=== PATIENT | female | born 1980 | race Caucasian/White ===

== ENCOUNTER 2021-04-20 15:45 | Emergency (ER) | payer BC, OTHER ==
--- NOTE | 2021-04-20 15:58 | EDM.PDOC ---
ED HPI GENERAL MEDICAL PROBLEM - General Stated Complaint: CHEST PRESSURE Time Seen by Provider: 04/20/21 15:45 Source of Information: Reports: Patient - History of Present Illness INITIAL COMMENTS - FREE TEXT/NARRATIVE: 40-year-old lady came in by private vehicle to the emergency department for evaluation of chest pressure. She points to an area over her left chest along the midclavicular line and approximately T2-T3 and states she has a pressure type feeling there. The chest pain/pressure is exacerbated by deep breath and by pressure applied directly over the area of the chest. She states that she had a panic attack several years ago when she had her last but this pain is very different. It is accompanied by dizziness and diaphoresis. There is a family history of early cardiac disease in her grandmother. Patient states that her grandmother had her first heart attack in her late 40s or early 50s. Her mom and dad have not had any cardiac disease that she knows of but they take medications for blood pressure. His past medical history is significant for type 1 diabetes. States that prior to this she was in her normal state of health. She has no known sick contacts. She denies fever, chills, respiratory symptoms, change in bowel or bladder habits. - Related Data Allergies Allergy/AdvReac Type Severity Reaction Status Date / Time cefaclor [From Ceclor] Allergy Anaphylactic Verified 05/21/13 08:32 Shock oxycodone [Oxycodone] Allergy Shortness Verified 01/05/14 18:13 of Breath Penicillins Allergy Anaphylactic Verified 05/21/13 08:32 Shock shellfish derived Allergy Anaphylactic Verified 05/21/13 08:32 Shock atorvastatin calcium AdvReac Unknown Leg Cramps Verified 09/22/13 00:41 [From Lipitor] butorphanol tartrate AdvReac Unknown Difficulty Verified 09/22/13 00:43 [From Stadol] Breathing simvastatin AdvReac Unknown Leg Cramps Verified 09/22/13 00:42 Home Meds: Home Meds Insulin Lispro [Humalog] 1 tab PO DAILY 05/21/13 [History] Multivitamin [Multi Vitamin Daily] 1 each PO DAILY 01/05/14 [History] Doxycycline Hyclate 100 mg PO BID #14 tablet. 04/20/21 [Rx] ED ROS GENERAL - Review of Systems Review Of Systems: See Below Constitutional: Reports: No Symptoms HEENT: Reports: No Symptoms Respiratory: Reports: No Symptoms Cardiovascular: Reports: Chest Pain, Lightheadedness Endocrine: Reports: No Symptoms GI/Abdominal: Reports: No Symptoms : Reports: No Symptoms Musculoskeletal: Reports: No Symptoms Skin: Reports: No Symptoms Neurological: Reports: No Symptoms Psychiatric: Reports: No Symptoms Hematologic/Lymphatic: Reports: No Symptoms Immunologic: Reports: No Symptoms ED EXAM, GENERAL - Physical Exam Exam: See Below Exam Limited By: No Limitations General Appearance: Alert, WD/WN, No Apparent Distress Eye Exam: Bilateral Eye: EOMI Head: Atraumatic, Normocephalic Neck: Normal Inspection Respiratory/Chest: No Respiratory Distress, Lungs Clear Cardiovascular: Regular Rate, Rhythm, No Gallop, No Murmur, Other (Pressure placed over the left chest along the midclavicular line approximately T2 through the T4 intercostal area reproduces the patient's chest pain/pressure, deep inspiration with pressure held in the spot also increases pain/pressure) Peripheral Pulses: 2+: Radial (L), Radial (R), Dorsalis Pedis (L), Dorsalis Pedis (R) GI/Abdominal: Normal Bowel Sounds, Non-Tender Back Exam: Normal Inspection. No: CVA Tenderness (R), CVA Tenderness (L) Neurological: Alert, Oriented, CN II-XII Intact, Normal Cognition Psychiatric: Normal Affect, Normal Mood Skin Exam: Warm, Dry, Intact Course - Vital Signs Text/Narrative:: Review of EKG and chest x-ray are essentially negative. D-dimer negative. Troponin negative. Patient has mildly elevated white blood cell count. Patient was given GI cocktail but had no relief of symptoms or change in symptoms. Further investigation/interview with the patient shows that she had a abscess on the left lower abdomen which was treated with Bactrim but she had an drug reaction to Bactrim and she was subsequently treated with ciprofloxacin and doxycycline. She completed antibiotic treatment approximately 10 days ago. However, over the last several days she has had sinus pain and pressure, sinus headache. Further physical exam shows significant erythema and edema of the nasal mucosa, right greater than left. She has significant tenderness to palpation over the right maxillary sinuses. Patient will be given 100 mg of doxycycline and sent home. Patient will be sent home with prescription for outpatient doxycycline treatment and encouraged to up with her primary care physician. Last Recorded V/S: Last Vital Signs Temp 37.0 C 04/20/21 16:07 Pulse 101 H 04/20/21 16:17 Resp 18 04/20/21 16:17 BP 150/92 H 04/20/21 16:17 Pulse Ox 98 04/20/21 16:17 - Orders/Labs/Meds Orders: Active Orders 24 hr Category Date Time Status CXR [Chest 1V Frontal] [CR] Stat Exams 04/20/21 16:01 Ordered Doxycycline [Vibra-Tabs] Med 04/20/21 17:08 Once 100 mg PO ONETIME ONE EKG 12 Lead [EK] Routine Ther 04/20/21 15:52 Ordered Labs: Laboratory Tests 04/20/21 04/20/21 04/20/21 Range/Units 15:52 15:52 15:52 WBC 11.8 H (3.0-10.3) x10-3/uL RBC 4.47 (3.60-5.20) x10(6)uL Hgb 11.8 (11.4-15.5) g/dL Hct 37.6 (34.2-48.2) % MCV 84.1 (76.7-100.5) fL MCH 26.3 (23.9-33.9) pg MCHC 31.3 L (31.9-34.8) g/dL RDW 13.8 (12.3-16.5) % Plt Count 402 (151-488) x10(3)uL MPV 7.5 (7.1-12.4) fL Neut % (Auto) 71.7 (30.8-76.2) % Lymph % (Auto) 19.9 (18.4-52.1) % [place] % (Auto) 5.6 (4.4-15.7) % Eos % (Auto) 1.9 (0.6-8.1) % Baso % (Auto) 0.9 (0.2-1.5) % Neut # (Auto) 8.5 H (1.5-6.3) x10-3/uL Lymph # (Auto) 2.3 (1.0-4.4) x10-3/uL [place] # (Auto) 0.7 (0.3-1.0) x10-3/uL Eos # (Auto) 0.2 (0.0-0.8) x10-3/uL Baso # (Auto) 0.1 (0.0-0.1) x10-3/uL D-Dimer, Quantitative (0.0-0.59) mg/LFEU Sodium 141 (135-145) mmol/L Potassium 3.9 (3.5-5.3) mmol/L Chloride 105 (100-110) mmol/L Carbon Dioxide 25 (21-32) mmol/L BUN 13 (7-18) mg/dL Creatinine 1.0 (0.55-1.02) mg/dL Est Cr Clr Drug Dosing 76.19 mL/min Estimated GFR (MDRD) > 60 (>60) BUN/Creatinine Ratio 13.0 (9-20) Glucose 132 H (80-116) mg/dL Calcium 8.4 L (8.6-10.2) mg/dL Total Bilirubin 0.4 (0.1-1.3) mg/dL AST 27 H (5-25) IU/L ALT 34 (12-36) U/L Alkaline Phosphatase 75 (56-112) IU/L Troponin I < 4.0 L (4.0-60.3) pg/mL Total Protein 7.4 (6.0-8.0) g/dL Albumin 3.5 (3.5-5.2) g/dL Globulin 3.9 g/dL Albumin/Globulin Ratio 0.9 10/24/21 Range/Units 15:52 WBC (3.0-10.3) x10-3/uL RBC (3.60-5.20) x10(6)uL Hgb (11.4-15.5) g/dL Hct (34.2-48.2) % MCV (76.7-100.5) fL MCH (23.9-33.9) pg MCHC (31.9-34.8) g/dL RDW (12.3-16.5) % Plt Count (151-488) x10(3)uL MPV (7.1-12.4) fL Neut % (Auto) (30.8-76.2) % Lymph % (Auto) (18.4-52.1) % [place] % (Auto) (4.4-15.7) % Eos % (Auto) (0.6-8.1) % Baso % (Auto) (0.2-1.5) % Neut # (Auto) (1.5-6.3) x10-3/uL Lymph # (Auto) (1.0-4.4) x10-3/uL [place] # (Auto) (0.3-1.0) x10-3/uL Eos # (Auto) (0.0-0.8) x10-3/uL Baso # (Auto) (0.0-0.1) x10-3/uL D-Dimer, Quantitative 0.34 (0.0-0.59) mg/LFEU Sodium (135-145) mmol/L Potassium (3.5-5.3) mmol/L Chloride (100-110) mmol/L Carbon Dioxide (21-32) mmol/L BUN (7-18) mg/dL Creatinine (0.55-1.02) mg/dL Est Cr Clr Drug Dosing mL/min Estimated GFR (MDRD) (>60) BUN/Creatinine Ratio (9-20) Glucose (80-116) mg/dL Calcium (8.6-10.2) mg/dL Total Bilirubin (0.1-1.3) mg/dL AST (5-25) IU/L ALT (12-36) U/L Alkaline Phosphatase (56-112) IU/L Troponin I (4.0-60.3) pg/mL Total Protein (6.0-8.0) g/dL Albumin (3.5-5.2) g/dL Globulin g/dL Albumin/Globulin Ratio Meds: Medications Discontinued Medications Generic Name Dose Route Start Last Admin Trade Name Freq PRN Reason Stop Dose Admin Al Hydroxide/Mg Hydroxide 15 0 ml 04/20/21 16:33 04/20/21 16:36 ml/ Lidocaine HCl 15 ml PO 04/20/21 16:34 15 ml ONETIME ONE Administration Departure - Departure Time of Disposition: 17:13 Disposition: Home, Self-Care 01 Condition: Good Clinical Impression: Pleuritic chest pain, Acute bacterial sinusitis Instructions: Sinusitis, Adult, [id number], Nonspecific Chest Pain, Adult, [id number] Additional Instructions: Patient instructed to follow-up with her primary care physician. Patient instructed to take medications as prescribed until completion. Patient instruct ed to return to the emergency department immediately if she has chest pain, shortness of breath, fever, chills, dizziness, palpitations. Sepsis Event Note (ED) - Focused Exam Vital Signs: Vital Signs Temp Pulse Resp BP Pulse Ox 04/20/21 16:17 101 H 18 150/92 H 98 04/20/21 16:07 37.0 C 99 18 184/111 H 97 - My Orders Last 24 Hours: My Active Orders 04/20/21 15:52 EKG 12 Lead [EK] Routine 04/20/21 16:01 CXR [Chest 1V Frontal] [CR] Stat 04/20/21 17:08 Doxycycline [Vibra-Tabs] 100 mg PO ONETIME ONE - Assessment/Plan Last 24 Hours: My Active Orders 04/20/21 15:52 EKG 12 Lead [EK] Routine 04/20/21 16:01 CXR [Chest 1V Frontal] [CR] Stat 04/20/21 17:08 Doxycycline [Vibra-Tabs] 100 mg PO ONETIME ONE
--- NOTE | 2021-04-20 16:04 | PCM.EKG ---
#1 Interpretation EKG Date: 04/20/21 Time: 15:46 EKG Interpretation Comments: Sinus tachycardia, rate 100, normal axis, no ST-T segment abnormalities
[2021-04-20 16:17] VITALS: BP 150/92; PULSE 101
[2021-04-20] MEDS ORDERED: Alum Hydroxide/Mag Hydroxide 15 ML, Lidocaine 2% 15 ML PO ONE ×2 (16:33)
[2021-04-20] MEDS ORDERED: Doxycycline 100 MG Tab PO ONE (17:08)
--- NOTE | 2021-04-21 11:46 | CR ---
CHEST ONE VIEW INDICATION: Chest pain, shortness of breath. FINDINGS: AP portable upright view of the chest 04/20/21 was compared with 07/05/12. Overlying EKG leads are noted. Heart, mediastinum and bony thorax are unremarkable. Allowing for the change in technique, markings are similar to the previous study without a definite active infiltrate or effusion. IMPRESSION: No acute process. MTDD
== END 2021-04-20 17:28 | disposition home or self-care (01) ==
LOC: FB.ED 15:45
DX: R07.81 Pleurodynia (principal); J01.80 Other acute sinusitis; B96.89 Other specified bacterial agents as the cause of diseases classified elsewhere; Z88.1 Allergy status to other antibiotic agents; Z88.5 Allergy status to narcotic agent; Z88.0 Allergy status to penicillin; Z91.013 Allergy to seafood; Z88.8 Allergy status to other drugs, medicaments and biological substances
CPT/HCPCS: 36415; 71045; 80053; 84484; 85025; 85379; 93005; 99284; A9270

== ENCOUNTER 2022-05-12 09:23 | Emergency (ER) | payer BC ==
[2022-05-12] MEDS ORDERED: hydrOXYzine HCl 50 MG/ML SDV IM ONE (09:51)
[2022-05-12 11:08] VITALS: BP 132/87; PULSE 92
== END 2022-05-12 11:01 | disposition home or self-care (01) ==
LOC: FB.ED 09:23
DX: H81.10 Benign paroxysmal vertigo, unspecified ear (principal); J45.909 Unspecified asthma, uncomplicated; E10.9 Type 1 diabetes mellitus without complications; E66.9 Obesity, unspecified; Z68.33 Body mass index [BMI] 33.0-33.9, adult; Z87.891 Personal history of nicotine dependence; Z88.1 Allergy status to other antibiotic agents; Z88.5 Allergy status to narcotic agent; Z88.0 Allergy status to penicillin; Z91.013 Allergy to seafood; Z88.8 Allergy status to other drugs, medicaments and biological substances; Z79.4 Long term (current) use of insulin; Z79.899 Other long term (current) drug therapy
CPT/HCPCS: 96372; 97161; 99284; J3410; 95992